=== PATIENT | male | born 1995 | race Caucasian/White ===

== ENCOUNTER 2020-12-11 11:55 | Inpatient (IN) | payer BC, OTHER ==
[~2020-12-11] VITALS: Ht 170.2 cm; Wt 73.2 kg
--- NOTE | 2020-12-11 12:09 | NUR ---
PATIENT WHEELED BACK FROM TRIAGE WITH CHIEF C/O ABD PAIN X3 DAYS. PATIENT WAS AT [facility] FOR 2 DAYS AND WAS TOLD HE HAD "GALLBLADDER POLYPS." PATIENT DISCHARGED FROM [facility] YESTERDAY. PATIENT AT PCP TODAY AND SENT HERE FOR CAT SCAN TO RULE OUT APPENDECITIS. PATIENT REPORTS LAST NIGHT HIS "TESTICLES AND PENIS STARTED HURTING WELL." PATIENT STATES PAIN IS ACROSS HIS LOWER ABD. PATIENT SUSHMA VOMITING AND DIARRHEA, DOES HAVE SOME NAUSEA. TEMP NOW IS 100.4, OTHER VITAL SIGNS STABLE.
[2020-12-11] MEDS ORDERED: MORPHINE SULFATE 4 MG/ML, 1ML IVPush PRN (12:30)
[2020-12-11] MEDS ORDERED: MORPHINE SULFATE 4 MG/ML, 1ML ONE (12:48)
[2020-12-11] MEDS ORDERED: ONDANSETRON 2MG/ML, 2ML ONE ×2 (12:48→15:56)
[2020-12-11] MEDS ORDERED: ACETAMINOPHEN 500 MG TABLET ONE (12:48)
[2020-12-11 12:52] LABS: BASOPHILS % (AUTO) 0 % (0-1); EOSINOPHILS % (AUTO) 0 % (1-7); LYMPHOCYTES % (AUTO) 5 % (22-44); MEAN CORPUSCULAR HGB CONC 34.5 g/dL (33.2-36.2); MEAN PLATELET VOLUME 9.9 fL (7.4-10.4); MONOCYTES % (AUTO) 6 % (2-9); NEUTROPHILS % (AUTO) 89 % (42-75); PLATELET COUNT 121 x10^3/uL (130-400); RED BLOOD COUNT 5.37 x10^6/uL (4.38-5.82); RED CELL DISTRIBUTION WIDTH 12.6 % (9.4-14.8)
[2020-12-11] MEDS ORDERED: ACETAMINOPHEN 500 MG TABLET PO ONE (13:00)
[2020-12-11] MEDS ORDERED: SODIUM CHLORIDE 0.9% 1,000ML IVBOLUS ONE (13:00)
[2020-12-11] MEDS ORDERED: ONDANSETRON 2MG/ML, 2ML IVPush ONE (13:00)
--- NOTE | 2020-12-11 13:00 | NUR ---
20 GAUGE IV STARTED IN LEFT AC, PATIENT MEDICATED PER eMAR, BOLUS HUNG, NADN, VSS, CALL LIGHT WITHIN REACH, NO FURTHER NEEDS AT THIS TIME.
[2020-12-11 13:01] LABS: ALANINE AMINOTRANSFERASE 11 U/L (12-78); ALBUMIN 3.7 g/dL (3.4-5.0); ANION GAP 6 mmol/L (5-15); CALCIUM 9.5 mg/dL (8.5-10.1); CHLORIDE 101 mmol/L (98-107); CREATININE 1.26 mg/dL (0.7-1.3)
[2020-12-11 13:04] LABS: ALKALINE PHOSPHATASE 72 U/L (45-117); BILIRUBIN,TOTAL 2.8 mg/dL (0.2-1.0)
[2020-12-11 13:21] LABS: MD SCAN
--- NOTE | 2020-12-11 13:31 | NUR ---
PATIENT TO IMAGING.
[2020-12-11] MEDS ORDERED: OMNIPAQUE 350 MG/ML, 100ML BOTTLE ONE (13:52)
--- NOTE | 2020-12-11 13:52 | NUR ---
PATIENT AMBULATED TO BATHROOM WITH STEADY GAIT FOR URINE SAMPLE.
[2020-12-11] MEDS ORDERED: CEFOTETAN PMX 2GM/50ML 50 ML IVPB ONE (14:00)
--- NOTE | 2020-12-11 14:04 | NUR ---
URINE SAMPLE COLLECTED AND SENT TO LAB.
[2020-12-11 14:15] LABS: MICROSCOPIC AUTO
[2020-12-11] MEDS ORDERED: SODIUM CHLORIDE 0.9% 1,000 ML IV ONE (15:00)
[2020-12-11] MEDS ORDERED: SODIUM CHLORIDE FLUSH 10ML SYR IVF PRN (15:00)
--- NOTE | 2020-12-11 15:04 | NUR ---
PATIENT SITTING IN [facility] ON PHONE, CAROLINAN, VSS, CALL LIGHT WITHIN REACH, NO FURTHER NEEDS AT THIS TIME.
[2020-12-11] MEDS ORDERED: CHLORHEXIDINE 15 ML UDC MM STA (15:07)
--- NOTE | 2020-12-11 15:11 | NUR ---
REPORT GIVEN TO OBEY RN IN PRE-OP FOR TRANSFER OF PATIENT CARE.
--- NOTE | 2020-12-11 15:21 | NUR ---
PATIENT TRANSFERRED TO OR BY OR TECHS IN STABLE CONDITION VIA GURNEY. ALL PATIENT BELONGINGS GATHERED AND TAKEN WITH PATIENT.
[2020-12-11] MEDS ORDERED: CHLORHEXIDINE 15 ML UDC MM ONE (15:30)
[2020-12-11] MEDS ORDERED: MIDAZOLAM 1 MG/ML, 2ML ONE (15:31)
[2020-12-11] MEDS ORDERED: FENTANYL PF 100 MCG/2ML ONE ×3 (15:31→17:22)
[2020-12-11] MEDS ORDERED: BUPIVACAINE/PF 0.5% ONE (15:34)
[2020-12-11] MEDS ORDERED: EPINEPHRINE 1 MG/ML, 1ML ONE (15:34)
[2020-12-11] MEDS: LACTATED RINGERS 1,000 ML IV SCH ×2 (15:52→22:24)
[2020-12-11] MEDS ORDERED: DEXAMETHASONE 4 MG/ML, 5ML ONE (15:56)
[2020-12-11] MEDS ORDERED: SUGAMMADEX 200 MG/2 ML IVPush ONE (15:56)
[2020-12-11] MEDS ORDERED: ROCURONIUM 10MG/ML,5ML ONE (17:03)
[2020-12-11] MEDS ORDERED: PROPOFOL 10 MG/ML, 20ML ONE (17:03)
[2020-12-11] MEDS ORDERED: OXYcodone 5 MG/5 ML ORAL.SOL UDC ONE (17:23)
[2020-12-11] MEDS ORDERED: HYDROmorphone 1 MG/ML, 1ML INJ ONE (17:23)
[2020-12-11] MEDS ORDERED: ALBUTEROL SULFATE 2.5 MG/3 ML NPPB PRN (17:30)
[2020-12-11] MEDS ORDERED: hydrALAzine 20 MG/ML, 1ML IV PRN ×2 (17:30→19:30)
[2020-12-11] MEDS ORDERED: PROMETHAZINE 25 MG/ML, 1ML IVPush PRN (17:30)
[2020-12-11] MEDS ORDERED: DIAZEPAM 5 MG/ML, 2ML IVPush PRN (17:30)
[2020-12-11] MEDS ORDERED: DIPHENHYDRAMINE 50 MG/ML, 1ML IVPush PRN (17:30)
[2020-12-11] MEDS ORDERED: PROMETHAZINE 12.5 MG SUPP PR PRN (17:30)
[2020-12-11] MEDS ORDERED: EPHEDRINE 50 MG/ML, 1ML IVPush PRN (17:30)
[2020-12-11] MEDS ORDERED: MIDAZOLAM 1 MG/ML, 2ML IV PRN (17:30)
[2020-12-11] MEDS ORDERED: LABETALOL 5MG/ML, 20ML IV PRN (17:30)
[2020-12-11] MEDS ORDERED: OXYcodone 5 MG/5 ML ORAL.SOL UDC PO PRN (17:30)
[2020-12-11] MEDS ORDERED: HYDROmorphone 1 MG/ML, 1ML INJ IVPush PRN (17:30)
[2020-12-11] MEDS ORDERED: FENTANYL PF 100 MCG/2ML IV PRN (17:30)
[2020-12-11] MEDS ORDERED: ONDANSETRON 2MG/ML, 2ML IVPush PRN (17:30)
[2020-12-11] MEDS ORDERED: MEPERIDINE/PF 25MG/0.5ML IVPush PRN (17:30)
[2020-12-11] MEDS ORDERED: DIPHENHYDRAMINE 25 MG CAPSULE PO PRN (19:30)
[2020-12-11] MEDS ORDERED: ACETAMINOPHEN 650 MG/20.3 ML UDC PO PRN (19:30)
[2020-12-11] MEDS ORDERED: ENALAPRILAT 1.25 MG/ML, 2ML IV PRN (19:30)
[2020-12-11] MEDS: PIPERACILLIN/TAZO/PMX 3.375GM 50 ML IV SCH (22:15)
[2020-12-11 22:51] VITALS: BP 112/69
[2020-12-11] MEDS: HEPARIN 5,000 UNITS/ML, 1ML SQ SCH (23:33)
[2020-12-11] MEDS: ONDANSETRON 2MG/ML, 2ML IVPush PRN (23:33)
[2020-12-11] MEDS: HYDROcodone/APAP 5/325 TABLET PO PRN (23:34)
[2020-12-12 00:07] VITALS: BP 131/87
[2020-12-12] MEDS: POTASSIUM CHLORIDE 20 MEQ in D5%-LACTATED RINGERS 1,000 ML IV SCH ×4 (00:40→22:00)
[2020-12-12] MEDS: PIPERACILLIN/TAZO/PMX 3.375GM 50 ML IV SCH ×4 (04:13→22:00)
[2020-12-12 04:21] VITALS: BP 123/78
[2020-12-12] MEDS: MORPHINE SULFATE 4 MG/ML, 1ML IVPush PRN ×4 (04:24→13:54)
[2020-12-12] MEDS ORDERED: PROMETHAZINE 25 MG/ML, 1ML IM PRN (04:30)
[2020-12-12 06:07] LABS: BASOPHILS % (AUTO) 0 % (0-1); EOSINOPHILS % (AUTO) 0 % (1-7); LYMPHOCYTES % (AUTO) 12 % (22-44); MEAN CORPUSCULAR HGB CONC 34.3 g/dL (33.2-36.2); MEAN PLATELET VOLUME 10.2 fL (7.4-10.4); MONOCYTES % (AUTO) 6 % (2-9); NEUTROPHILS % (AUTO) 81 % (42-75); PLATELET COUNT 115 x10^3/uL (130-400); RED BLOOD COUNT 4.59 x10^6/uL (4.38-5.82); RED CELL DISTRIBUTION WIDTH 12.7 % (9.4-14.8)
[2020-12-12 06:14] LABS: ALBUMIN 2.6 g/dL (3.4-5.0); ANION GAP 6 mmol/L (5-15); CALCIUM 8.5 mg/dL (8.5-10.1); CHLORIDE 105 mmol/L (98-107)
[2020-12-12 06:21] LABS: MD NO
[2020-12-12 06:35] VITALS: BP 123/77
[2020-12-12] MEDS: HEPARIN 5,000 UNITS/ML, 1ML SQ SCH ×2 (07:36→16:11)
[2020-12-12] MEDS: DIPHENHYDRAMINE 50 MG/ML, 1ML IV PRN ×2 (07:36→22:12)
[2020-12-12] MEDS: HYDROcodone/APAP 5/325 TABLET PO PRN (07:37)
[2020-12-12] MEDS: ONDANSETRON 2MG/ML, 2ML IVPush PRN ×2 (09:51→17:17)
[2020-12-12] MEDS ORDERED: LORazepam 2 MG/ML, 1ML IVPush PRN (11:00)
[2020-12-12] MEDS: KETOROLAC 30 MG/1 ML IV PRN (13:54)
[2020-12-12 14:18] VITALS: BP 113/70
[2020-12-12 20:57] VITALS: BP 147/77
[2020-12-13] MEDS: HEPARIN 5,000 UNITS/ML, 1ML SQ SCH ×3 (00:59→17:02)
[2020-12-13 01:04] VITALS: BP 128/74
[2020-12-13] MEDS: ONDANSETRON 2MG/ML, 2ML IVPush PRN ×4 (01:20→23:28)
[2020-12-13] MEDS: POTASSIUM CHLORIDE 20 MEQ in D5%-LACTATED RINGERS 1,000 ML IV SCH ×3 (04:30→17:27)
[2020-12-13] MEDS: PIPERACILLIN/TAZO/PMX 3.375GM 50 ML IV SCH ×4 (04:30→23:18)
[2020-12-13 07:26] VITALS: BP 136/72
[2020-12-13] MEDS: KETOROLAC 30 MG/1 ML IV PRN ×2 (10:18→15:43)
[2020-12-13 14:00] VITALS: BP 129/77
[2020-12-13 19:59] VITALS: BP 129/72
[2020-12-14] MEDS: POTASSIUM CHLORIDE 20 MEQ in D5%-LACTATED RINGERS 1,000 ML IV SCH ×4 (00:46→21:45)
[2020-12-14] MEDS: HEPARIN 5,000 UNITS/ML, 1ML SQ SCH ×3 (00:47→17:14)
[2020-12-14 01:57] VITALS: BP 129/77
[2020-12-14] MEDS: KETOROLAC 30 MG/1 ML IV PRN (02:44)
[2020-12-14] MEDS: PIPERACILLIN/TAZO/PMX 3.375GM 50 ML IV SCH ×4 (05:07→22:54)
[2020-12-14 08:08] VITALS: BP 150/69
[2020-12-14] MEDS: ONDANSETRON 2MG/ML, 2ML IVPush PRN (08:08)
[2020-12-14] MEDS ORDERED: HYDROmorphone 1 MG/ML, 1ML INJ IV ONE (12:30)
[2020-12-14 13:56] VITALS: BP 134/78
[2020-12-14 18:40] VITALS: BP 134/79
[2020-12-15 01:29] VITALS: BP 142/84
[2020-12-15] MEDS: HEPARIN 5,000 UNITS/ML, 1ML SQ SCH ×3 (01:39→18:13)
[2020-12-15] MEDS: PIPERACILLIN/TAZO/PMX 3.375GM 50 ML IV SCH ×4 (06:06→23:34)
[2020-12-15] MEDS: POTASSIUM CHLORIDE 20 MEQ in D5%-LACTATED RINGERS 1,000 ML IV SCH ×3 (06:06→21:44)
[2020-12-15 07:47] VITALS: BP 153/80
[2020-12-15 18:30] VITALS: BP 142/82
[2020-12-16] MEDS: HEPARIN 5,000 UNITS/ML, 1ML SQ SCH ×2 (01:30→09:58)
[2020-12-16 01:34] VITALS: BP 124/73
[2020-12-16] MEDS: DIPHENHYDRAMINE 50 MG/ML, 1ML IV PRN (04:19)
[2020-12-16] MEDS: POTASSIUM CHLORIDE 20 MEQ in D5%-LACTATED RINGERS 1,000 ML IV SCH ×2 (04:28→11:12)
[2020-12-16] MEDS: PIPERACILLIN/TAZO/PMX 3.375GM 50 ML IV SCH ×2 (05:16→11:21)
[2020-12-16 06:45] VITALS: BP 123/71
[2020-12-16 14:00] VITALS: BP 126/74
[2020-12-16] MEDS ORDERED: TRAM50TA2 PO (14:35)
[2020-12-16] MEDS ORDERED: ONDA4TAB7 PO (14:36)
[2020-12-16] MEDS ORDERED: AMOX1TAB64 PO (14:37)
== END 2020-12-16 15:41 | disposition home or self-care (01) | DRG 343 ==
LOC: ED 14:07 → EDIP 14:08 → ED 14:28 → 4NE 19:25 → DCLOUNGE 12-16 15:31
PROVIDERS: ADMIT Surgery; ATTEND Surgery
PROC: 0DTJ4ZZ Resection of Appendix, Percutaneous Endoscopic Approach (ICD-10-PCS; principal; 2020-12-15)
DX: K35.30 Acute appendicitis with localized peritonitis, without perforation or gangrene (principal); K82.4 Cholesterolosis of gallbladder; Z20.822 Contact with and (suspected) exposure to COVID-19; Z88.5 Allergy status to narcotic agent; Z88.2 Allergy status to sulfonamides
CPT/HCPCS: 36415; 96361; 96365; 96375; 99285; J7121; S0020; 74177; 80048; 80053; 81001; 82040; 83690; 85025; 87635; 88304; G0378; J0171; J1100; J1170; J1644; J1885; J2250; J2405; J2543; J2550; J2704; J3010; J3480; Q9967; J1200; J2270; J7030; J7120